=== PATIENT | male | born 1975 | race Caucasian/White ===

== ENCOUNTER 2024-07-16 13:47 | Outpatient (AMB) | payer OTHER, SELFPAY ==
--- NOTE | 2024-07-16 13:50 | A.OFFPC_ITS ---
Vital Signs 07/16/24 14:05 Height 6 ft 0.13 in Weight 263 lb 6 oz BMI 35.6 BP 118/72 Blood Pressure Location Lt brachial Position Sitting Respiration 16 Pulse 100 Pulse Source Pulse Oximeter Temp 98.2 F Temp Source Oral Pulse Oximetry (%) 97 Oxygen Delivery Method Room Air Intake Visit Reasons: EstablishCareNP Intake Note: New patient visit Interactive Media Marketing Specialist Required: No Allergies Penicillins Allergy (Unknown, Verified 07/16/24 13:53) Unknown sulfamethoxazole [From Sulfamethoxazole-Trimethoprim] Allergy (Unknown, Verified 07/16/24 13:52) Unknown trimethoprim [From Sulfamethoxazole-Trimethoprim] Allergy (Unknown, Verified 07/16/24 13:52) Unknown Tobacco use date assessed: 07/16/24 Dental Screening Dental Screen Date: 07/16/24 Did you have a dental visit in the last 12 months?: Yes Did you have a dental problem in the last 6 months where you did not have access to dental care?: No Was dental information given to patient?: Patient has dentist HPI HPI Comments History of Present Illness Details This is a 48-year-old male with a past medical history of ureteral stones, impaired fasting glucose, hyperlipidemia and PVCs presenting to follow up. He transferred from my panel at [facility]. I saw him in May of 2023. Kidney stones-followed by [facility]. Denies urinary symptoms. The patient says he had a PSA level done with the urologist over the summer, and it was normal. Hyperlipidemia-no medication. Patient says he needs to get back on his low- cholesterol diet. He has been eating a lot of red meat. PVCs-previously evaluated by Cardiology. He was given metoprolol at one point, but it has since been discontinued. He only gets occasional palpitations. He endorses vertigo symptoms that started when he developed issues with his right TMJ. He saw his dentist, he needs to get new dentures. Patient says a couple of times per month when he turns his head quickly it feels like he is on a boat and the room is moving. He had 1 episode with nausea. No hearing loss, tinnitus or ear pain No chest pain, shortness of breath, syncope. No headache, vision changes, weakness, numbness or speech difficulty. Patient did a Cologuard test last year which was reportedly negative. Records transfer pending. ROS: Constitutional: No unexplained weight loss, fever, chills, fatigue or night sweats. Eyes: No vision changes, blurry vision, double vision, eye pain, eye redness, eye discharge. ENT: No hearing loss, sneezing, congestion, runny nose or sore throat. Respiratory: No shortness of breath, cough or sputum production. Cardiovascular: No chest pain, chest pressure or chest discomfort. No palpitations or pedal edema. Neurologic: No headache, syncope, unilateral weakness, ataxia, numbness or tingling in the extremities. Endocrine: No cold or heat intolerance. No polyuria or polydipsia. Physical exam: Constitutional: Alert, in no distress. Eyes: Pupils are equal, round and reactive to light. Extraocular muscles intact. Ear, Nose and Throat: Canals clear. TMs normal. Normal nasal mucosa. No nasal discharge. No oral lesions. Neck: Supple, Full range of motion. No lymphadenopathy. No palpable thyroid masses. Respiratory: Clear to auscultation. Cardiovascular: S1 S2 regular. No murmurs. Neurologic:?Alert and oriented x 3, no focal deficits observed, CN 2-12 intact, [id number] normal, sensation equal and symmetric, strength UE and LE 5/5 bilaterally, reflexes equal and symmetric.? Normal gait.? Patient able to heel walk, toe walk and walk heel-to-toe across the floor.? No pronator drift.? Negative Romberg. Extremities: Warm and well perfused. No clubbing, cyanosis or edema. Psychiatric: Normal mood and affect COUNTS INCLUDE [facility] BEDS AT [facility] Medical History (Updated 07/16/24 @ 16:00 by CHELSEY Duff) Benign paroxysmal positional vertigo, bilateral PVC (premature ventricular contraction) IFG (impaired fasting glucose) Ureteral stone Hyperlipidemia Family History (Updated 07/16/24 @ 14:00 by Angela Matthew CMA) Brother Thyroid cancer Father Diabetes Maternal Grandmother Anxiety Social History (Updated 07/16/24 @ 13:54 by Angela Matthew CMA) [facility] Patient Tobacco Use Status: Former Tobacco user Cigarette Packs Per Day: 1.5 Years Smoked: 3 e-Cigarette/Vaping Use: Never Used Second Hand Smoke Exposure: No service: Yes Current occupational status: employed Current occupation: loan manager, [employer] Current occupational exposures/hazards: Yes Cognitive needs: No Hearing needs: No Vision needs: Yes (contacts) Questionnaire PHQ-9 Over the last 2 weeks, how often have you been bothered by any of the following problems? 1. Little interest or pleasure in doing things: not at all 2. Feeling down, depressed, or hopeless: not at all 3. Trouble falling or staying asleep, or sleeping too much: not at all 4. Feeling tired or having little energy: not at all 5. Poor appetite or overeating: not at all 6. Feeling bad about yourself - or that you are a failure or have let yourself or your family down: not at all 7. Trouble concentrating on things, such as reading the newspaper or watching television: several days 8. Moving or speaking so slowly that other people could have noticed. Or the opposite - being so fidgety or restless that you have been moving around a lot more than usual: several days 9. Thoughts that you would be better off or of hurting yourself in some way: not at all Total score: 2 Depression Screening Interpretation: Positive Depression Screening Done: Yes [id number] - PHQ-9 Billing: Yes Source: Developed by Drs. Dileep Calloway, Aileen Dill, Srinivasan John and colleagues, with an educational shanique from [employer]. Thrive Questionnaire Date Thrive assessed: 07/16/24 I am a: Patient What is your living situation today?: I have a steady place to live Within the past 12 months, did the food you bought not last and you didn't have the money to get more?: Never true Within the past 12 months, did you worry whether your food would run out before you got money to buy more?: Never true Do you have trouble paying for medicines?: No Do you have trouble getting transportation to medical appointments?: No Do you have trouble paying your heating and electricity bill?: No Do you have trouble taking care of your child, family member or friend?: No Do you have trouble with day-to-day activities such as bathing, preparing meals, shopping, managing finances, etc.?: No Are you currently unemployed and looking for a job?: No Are you interested in more education?: Yes Please select the resources that you would like help with: Education Currently or been in a relationship where the following occur: No concerns reported THRIVE Score: 0 AUDIT C Alcohol Use Questionnaire (AUDIT-C) 1. How often do you have a drink containing alcohol?: Monthly or less (Couple times a year) 2. How many drinks containing alcohol do you have on a typical day when you are drinking?: 1 or 2 3. How often do you have six or more drinks on one occasion?: Never Total Score: 1 RODRIGUEZ-7 AMB Questionnaire RODRIGUEZ-7 Date RODRIGUEZ - 7 assessed: 07/16/24 Feeling nervous, anxious, or on edge: 0 = Not at all Not being able to stop or control worryin = Not at all Worrying too much about different things: 0 = Not at all Trouble relaxin = Not at all Being so restless that it is hard to sit still: 0 = Not at all Becoming easily annoyed or irritable: 0 = Not at all Feeling afraid as if something awful might happen: 0 = Not at all Total RODRIGUEZ-7 score (0-4 normal; 5-9 mild; 10-14 moderate; 15-21 severe): 0 Source: Developed by Drs. Dileep Calloway, Aileen Dill, Srinivasan John and colleagues, with an educational shanique from [employer]. RODRIGUEZ-7 Assessment Billing RODRIGUEZ-7 Assessment Tool: RODRIGUEZ-7 Assessment 42579 Physical exam (Primary Care) Vital Signs: Last Vital Signs Temp 98.2 F 07/16/24 14:05 Pulse 100 07/16/24 14:05 Resp 16 07/16/24 14:05 BP 118/72 07/16/24 14:05 Pulse Ox 97 07/16/24 14:05 Oxygen Delivery Method Room Air 07/16/24 14:05 BMI result Body Mass Index 35.6 Tobacco/Smoking Status: Tobacco use Status Tobacco use date assessed 07/16/24 07/16/24 13:55 Patient Tobacco Use Status Former Tobacco user 07/16/24 14:03 e-Cigarette/Vaping Use Never Used 07/16/24 13:55 PHQ-9: PHQ-9 Score PHQ-9: Total score 2 07/16/24 14:54 Depression Screening Interpretation: Positive Thrive Assessment: Date of Thrive Assessment Date Thrive assessed 07/16/24 07/16/24 14:54 Currently or been in a relationship where the following occur: No concerns reported Assessment and Plan Assessment & Plan (1) IFG (impaired fasting glucose): Code(s): R73.01 - Impaired fasting glucose Plan: Recommended low carbohydrate, low sugar diet. Avoid alcohol. Check hemoglobin A1c. (2) Hyperlipidemia: Code(s): E78.5 - Hyperlipidemia, unspecified Qualifiers: Hyperlipidemia type: pure hypercholesterolemia Qualified Code(s): E78.00 - Pure hypercholesterolemia, unspecified Plan: Recommended cardiovascular exercise for at least 30 minutes 5 days per week. Avoid full fat dairy products and animal fats. Recommended Mediterranean diet. Check fasting lipid profile. (3) Benign paroxysmal positional vertigo, bilateral: Code(s): H81.13 - Benign paroxysmal vertigo, bilateral Plan: Benign neurologic exam today. Prescribed meclizine 25 mg 3 times a day as needed. Discussed it may cause sedation and dizziness. Do not drive or operate heavy machinery with it. Patient given referral for outpatient physical therapy for vestibular rehab. Patient will call the office to schedule. Warning signs warranting ER evaluation reviewed. If he has persistent symptoms we will consider referral to ENT and neuroimaging. Plan Follow up in 8 weeks to review labs and recheck vertigo. Orders: Orders Complete Blood Count no Diff Today E78.5 - Hyperlipidemia, unspecified, I49.3 - Ventricular premature depolarization, R73.01 - Impaired fasting glucose Lipid Panel Today E78.5 - Hyperlipidemia, unspecified, I49.3 - Ventricular premature depolarization, R73.01 - Impaired fasting glucose Comprehensive Met. Panel Today E78.5 - Hyperlipidemia, unspecified, I49.3 - Ventricular premature depolarization, R73.01 - Impaired fasting glucose Hemoglobin A1c Today E78.5 - Hyperlipidemia, unspecified, I49.3 - Ventricular premature depolarization, R73.01 - Impaired fasting glucose PT Evaluation and Treatment Today H81.13 - Benign paroxysmal vertigo, bilateral Medications: New meclizine 25 mg PO TID 30 tabs 0RF vertigo Coding Level of Care Code Est Pt Level 4 (79095) Complex EM visit Add On G2211 Diagnoses IFG (impaired fasting glucose) R73.01 Pure hypercholesterolemia E78.00 Hyperlipidemia type: pure hypercholesterolemia Benign paroxysmal positional vertigo, bilateral H81.13 Additional Codes RODRIGUEZ-7 Assessment Billing - RODRIGUEZ-7 Assessment Tool: RODRIGUEZ-7 Assessment [id number] ([id number])
[2024-07-16 14:05] VITALS: BP 118/72; PULSE 100; RESP 16; TEMP 36.8; O2SAT 97; BMI 35.6
== END 2024-07-16 14:28 | disposition home or self-care (01) ==
PROVIDERS: PCP Physician Assistant Medical; Visit Provider Physician Assistant Medical
DX: R73.01 Impaired fasting glucose (principal); E78.00 Pure hypercholesterolemia, unspecified; H81.13 Benign paroxysmal vertigo, bilateral

== ENCOUNTER → 2024-07-16 13:47 | Outpatient (BNVA) | payer OTHER, SELFPAY | PROVIDERS: PCP Physician Assistant Medical; Visit Provider Physician Assistant Medical | DX: R73.01 Impaired fasting glucose (principal); E78.00 Pure hypercholesterolemia, unspecified; H81.13 Benign paroxysmal vertigo, bilateral | CPT/HCPCS: 96127 ==